=== PATIENT | male | born 1955 | race Caucasian/White ===

== ENCOUNTER → 2024-08-04 11:28 | Outpatient (REF) | payer MEDICARE, SELFPAY | LOC: CLAB 11:28 | PROVIDERS: ATTENDING PHYSICIAN Specialist | DX: C61 Malignant neoplasm of prostate (principal) | CPT/HCPCS: 88305 ==

== ENCOUNTER → 2024-11-06 17:21 | Outpatient (REF) | payer MEDICARE, SELFPAY | LOC: MRI 3T 17:21 | PROVIDERS: ATTENDING PHYSICIAN Specialist; FAMILY PHYSICIAN Physician Assistant Medical | DX: C61 Malignant neoplasm of prostate (principal) | CPT/HCPCS: 72197; A9575 ==